=== PATIENT | female | born 1990 | race Caucasian/White ===

== ENCOUNTER → 2017-03-27 15:43 | Observation (INO) ==
--- NOTE | 2017-03-27 13:44 | OB/GYN Progress Note ---
Date of Encounter: 03/27/17 Time of Encounter: 13:41 - Assessment and Plan (1) 37 weeks gestation of Current Visit: No Status: Acute 27 y/ @ 37 weeks presented to L&D for labor eval, cervix-4cm unchanged NST reactive, patient not in labor, ok for discharge Objective - Vital Signs Vital Signs: Intake and Output 03/26/17 03/27/17 03/27/17 23:59 07:59 15:59 Other: Weight 157.1 kg Patient Weight 03/27/17 23:59 Weight 157.1 kg
[2017-03-27 14:34] LABS: Amphetamine Screen,Urine Negative ng/mL (Cutoff=1000); Barbiturate Screen,Urine Negative ng/mL (Cutoff=200); Benzodiazepines Screen,Urine Negative ng/mL (Cutoff=200); Cannabinoid Screen,Urine Negative ng/mL (Cutoff = 50); Cocaine Screen,Urine Negative ng/mL (Cutoff= 300); Opiate Screen,Urine Negative ng/mL (Cutoff=300); Phencyclidine Screen,Urine Negative ng/mL (Cutoff=25)
== END | disposition home or self-care (01) ==
LOC: 1NENULAB
PROVIDERS: ADMIT Student in an Organized Health Care Education/Training Program; ATTEND Student in an Organized Health Care Education/Training Program

== ENCOUNTER 2017-03-31 16:47 | Inpatient (IN) ==
[2017-03-31] MEDS ORDERED: Metoclopramide 10 MG/2 ML VIAL IVP PRN (16:53)
[2017-03-31] MEDS ORDERED: Famotidine 20 MG/2 ML VIAL IVP PRN (16:53)
[2017-03-31] MEDS ORDERED: Naloxone 0.4 MG/ML INJ IVP PRN (16:53)
[2017-03-31] MEDS ORDERED: Ondansetron 4 MG/2 ML VIAL IVP PRN (16:53)
[2017-03-31] MEDS ORDERED: Ringers Solution, Lactated 1,000 ML IVC SCH (17:00)
[2017-03-31 17:48] LABS: Basophils % 0.2 %; Eosinophils # 0.3 K/mcL (0.0-0.6); Eosinophils % 1.9 %; Hematocrit 35.8 % (35.3-44.9); Hemoglobin 11.4 g/dL (11.5-15.4); Immature Granulocytes % 0.7 % (0-4); Lymphocytes # 2.5 K/mcL (0.6-4.6); Lymphocytes % 14.8 %; Mean Corpuscular HGB Conc 31.8 g/dL (31.6-35.5); Mean Corpuscular Hemoglobin 27.7 pg (28.0-33.3); Mean Corpuscular Volume 87.1 fL (83.0-100.0); Mean Platelet Volume 10.2 fL (9.4-12.4); Monocytes # 1.4 K/mcL (0.0-1.3); Monocytes % 8.4 %; Neutrophils # 12.5 K/mcL (1.6-8.9); Platelet Count 363 K/mcL (140-400); Red Blood Count 4.11 M/mcL (3.82-4.97); Red Cell Distribution Width 14.7 % (11.5-14.5)
--- NOTE | 2017-03-31 19:13 | OB/GYN Progress Note ---
Date of Encounter: 03/31/17 Time of Encounter: 19:10 - Assessment and Plan (1) 38 weeks gestation of Current Visit: Yes Status: Acute (2) False labor Current Visit: No Status: Ruled-out He should monitor and evaluated in labor delivery. Continues to have contractions rarely but on monitor. Discharged home with when to return to triage notify provider instructions patient family verbalized understanding. Plan of care discussed with Dr. Young Subjective - Subjective Interval history: 38+2 weeks gestation sent over from the office for labor evaluation. Patient states she has been having contractions off and on for the last 2 weeks , currently having contractions approximately every 15 minutes, had leaking of fluid 2 days ago, and continues to have occasional gushes of fluid. Speculum exam and office was positive for nitrazine negative pooling negative ferning on exam per Dr. Young. Reports good movement and denies vaginal bleeding. Antepartum ROS: loss of fluid, movement normal, no vaginal bleeding, no contractions Objective - Vital Signs Vital Signs: Vital Signs Temp Pulse Resp BP 03/31/17 17:28 98.4 F 96 14 118/71 - Exam FHR: auscultation normal FHR comments: baseline 135 Auscultation: bilateral: normal Abdomen: Present: normal appearance, soft, gravid Uterus: Present: normal Cervical dilation: 5 Cervix effacement: 75 - Labs Labs: Abnormal lab results WBC 16.9 K/mcL (4.3-11.1) H 03/31/17 17:28 Hgb 11.4 g/dL (11.5-15.4) L 03/31/17 17:28 MCH 27.7 pg (28.0-33.3) L 03/31/17 17:28 RDW 14.7 % (11.5-14.5) H 03/31/17 17:28 Neutrophils # 12.5 K/mcL (1.6-8.9) H 03/31/17 17:28 Monocytes # 1.4 K/mcL (0.0-1.3) H 03/31/17 17:28
[2017-03-31] MEDS ORDERED: *HR* Nalbuphine 20 MG/ML AMPUL IVP PRN (20:46)
[2017-03-31] MEDS ORDERED: Oxytocin 20 units/ LR 1000 mL 20 UNIT/1,000 ML BAG IVC SCH (21:00)
--- NOTE | 2017-03-31 21:33 | OB/GYN History & Physical ---
Date of Encounter: 03/31/17 Time of Encounter: 21:30 Assessment and Plan (1) 38 weeks gestation of Current visit: Yes Status: Acute (2) Prolonged rupture of membranes Current visit: Yes Status: Acute Patient with plates of continued leaking of fluid. Patient with previous ultrasound and JOYCE of 18, patient scanned by Dr. Young JOYCE of 6 with 2 pockets with no fluid noted. Due to decrease in amniotic fluid volume presumed rupture 2 days ago with onset of leaking of fluid. Will admit to labor and delivery Nubain and epidural as desired Anticipate GBS negative, will initiate antibiotics with patient presents with symptoms Dr. Young aware of plan (3) Large for gestational age fetus Current visit: Yes Status: Acute History of Present Illness Chief complaint: contractions HPI: Ms. Caballero is a 27 year old female 38+2 weeks' gestation presents from the office with complaints of leaking of fluid for the last 2 days (positive nitrazine, negative pooling, negative ferning office exam by Dr. Young ) contractions for the last week. Reports good movement and denies vaginal bleeding. Labs: O+ rubella immune, varicella nonimmune, GBS negative, all other serologies negative Past Med Surg Social Fam HX - Past Medical History Medical history: no medical history Psychiatric history: no psych history - Past Surgical History Surgical History: other - Social History Smoking Status: Current every day smoker Packs per day: .25 Smokeless Tobacco Status: Yes Alcohol use: none Drug use: none - Family History Mother Adopted: No Family Member Ethnicity: Non- Living Status: Still Living Hx Family Cardiac Disorders: Yes (stent placed) Hx Family Respiratory Disorders: No Hx Family Cancer: No Hx Family GI Disorders: No Hx Family Genitourinary Disorders: No Hx Family Endocrine Disorder: No Hx Family Musculoskeletal Disorders: No Hx Family Neuromuscular Disorders: No Hx Family Neurologic Disorders: No Hx Family HEENT Disorders: No Hx Family Autoimmune Disorders: No Hx Family Reproductive Disorders: No Hx Family Psychosocial Disorders: No Hx Family Medical Disorders: No Obstetrical History - Pregnancies : 2 Para: 1 Term: 1 : 0 Ab's: 0 Livin Medications and Allergies Flintstones 1 tab PO DAILY 12/23/15 [History] 3 Allergy/AdvReac Type Severity Reaction Status Date / Time Bleach (Sodium Hypochlorite) Allergy Hives Verified 03/27/17 13:24 coconut Allergy Swelling Verified 03/27/17 13:24 of Lip/Tongue/Throat strawberries Allergy Hives Uncoded 03/27/17 13:24 Exam - Vital Signs Vital signs: Initial Vital Signs Temp Pulse Resp BP 98.4 F 96 14 118/71 03/31/17 17:28 03/31/17 17:28 03/31/17 17:28 03/31/17 17:28 - Constitutional Constitutional: well developed, well nourished, no acute distress, obese - Lungs Respiratory exam: CTAB - Cardiovascular Cardiovascular exam: RRR - Abdomen Abdomen: Present: bowel sounds normal, gravid, non tender - Vagina Vagina: Present: normal moisture - Cervix Dilation: 5 Effacement: 80 Station: -2 - Uterus Uterus exam: Present: normal size, normal contour Results Result Diagrams: 03/31/17 17:28 Abnormal lab results WBC 16.9 K/mcL (4.3-11.1) H 03/31/17 17:28 Hgb 11.4 g/dL (11.5-15.4) L 03/31/17 17:28 MCH 27.7 pg (28.0-33.3) L 03/31/17 17:28 RDW 14.7 % (11.5-14.5) H 03/31/17 17:28 Neutrophils # 12.5 K/mcL (1.6-8.9) H 03/31/17 17:28 Monocytes # 1.4 K/mcL (0.0-1.3) H 03/31/17 17:28 All other labs normal. - VTE Reasons for not Prescribing Prophylaxis: Treatment not Indicated - Low risk for VTE
[2017-03-31 21:38] LABS: Amphetamine Screen,Urine Negative ng/mL (Cutoff=1000); Barbiturate Screen,Urine Negative ng/mL (Cutoff=200); Benzodiazepines Screen,Urine Negative ng/mL (Cutoff=200); Cannabinoid Screen,Urine Negative ng/mL (Cutoff = 50); Cocaine Screen,Urine Negative ng/mL (Cutoff= 300); Opiate Screen,Urine Negative ng/mL (Cutoff=300); Phencyclidine Screen,Urine Negative ng/mL (Cutoff=25)
[2017-03-31] MEDS ORDERED: *HR* FentaNYL (PF) 100 MCG/2 ML VIAL EP ONE (22:48)
[2017-03-31] MEDS ORDERED: *HR* Ropivacaine/PF 0.2% 10 ML AMPUL EP ONE (22:48)
[2017-03-31] MEDS ORDERED: *HR* FentaNYL (PF) 100 MCG/2 ML VIAL ONE (22:58)
[2017-03-31] MEDS ORDERED: *HR* Ropivacaine/PF 0.2% 10 ML AMPUL ONE (22:59)
[2017-03-31] MEDS ORDERED: Epidural Premix (fent/bupiv) 110 ML EP ONE (22:59)
[2017-03-31] MEDS ORDERED: Epidural Premix (fent/bupiv) 110 ML EP SCH (23:00)
--- NOTE | 2017-03-31 23:22 | Anesthesia Evaluation PreOp ---
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: Denies Any Significant HX Other Medical History: GERD Anesthesia History: No Prior Anesthetic Complications, Past Anesthesia (tonsil, srinivasa) : Yes Test: Positive Alcohol Use: none Drug use: none Medications and Allergies Flintstones 1 tab PO DAILY 12/23/15 [History] 3 Allergy/AdvReac Type Severity Reaction Status Date / Time Bleach (Sodium Hypochlorite) Allergy Hives Verified 03/27/17 13:24 coconut Allergy Swelling Verified 03/27/17 13:24 of Lip/Tongue/Throat strawberries Allergy Hives Uncoded 03/27/17 13:24 - Meds/Allergy Pre-op Review Medications Reviewed: Yes Allergies Reviewed: Yes Beta Blockers on Current Med List: No Anesthesia Results - Labs 03/31/17 17:28 Anesthesia Exam 130/87 89 fht 133 Height: 6'2" Weight: 157 k NPO (# of Hours): 2 Pain Scale: 7 Pain Scale Used: Numeric (1 - 10) - HEENT Pupil (Motor): Pupils equal Mallampati: II Teeth: Normal Oral Opening: Greater than 3 - OXYGEN PLANT OPERATOR LOC: Oriented OXYGEN PLANT OPERATOR Motor: Normal RUE, Normal LUE, Normal RLE, Normal LLE, Normal Face OXYGEN PLANT OPERATOR Sensory: Normal: RUE, LUE, RLE, LLE, Face - Cardiac Rhythm: Regular Murmur: None - Pulmonary Breath Sounds: bilateral Clear Respiratory Effort: Symmetrical Anesthesia Assess/Plan ASA Score: 3 (smoker, [place]) Modified Anne Scale for Level of Consciousness: Cooperative, oriented, and tranquil Anesthetic Plan: Regional Autologous Blood: No Monitoring Plan: Standard Monitors Recovery Plan: Other (risks discussed, questions answered, consented)
--- NOTE | 2017-03-31 23:26 | Anesthesia Procedures ---
Date of Encounter: 03/31/17 Time of Encounter: 23:24 Procedures: Anesthesia - Epidural/Spinal Patient ID/Chart reviewed: Yes Patient examined: Yes OB Eval: Gestational age: 38.2 OB Eval: : 2 OB Eval: Hx Para: 1 OB Eval: Dilated at (cm): 5 OB Eval: Contractions: Non-stressed pattern Consent Obtained: Yes Supplemental Oxygen: None/Room Air Site Prep: Aseptic Technique, Sterile prep and drape, 0.5% Chlorhexidine/Alcohol Patient position: upright Local Anesthetic: Lidocaine 1% (3) Amount of Local Anesthetic used: 3 Touhy Needle Gauge: 18 Catheter Depth at Skin (cm): 9 Test Dose (1.5% Lido + Epi): Volume given (mls): 3 Test Dose Result: Negative Loading Dose: Fentanyl (mcg): 100 Loading Dose: Other: rop 0.2% 10cc Loading Dose Administered: Thru Touhy Needle Infusion Med: 0.125% Bupivacaine w/ 2 mcg/ml Fentanyl Infusion Rate (mls/hr): [address]: Tegaderm Interspace Used: L2-L3 Loss of Resistance (JONO): Yes Blood: No CSF: No Paresthesia: No Procedure: aseptic, tolerated well, VSS, effective - Nerve Block Vitals: 130/80 88 fht 134
--- NOTE | 2017-04-01 03:54 | OB/GYN Procedure Note ---
Delivery - Delivery Date: 04/01/17 Provider: Beatrice Kenyon Intrapartum events: other(please specify) (Prolonged rupture of membranes over 48 hours) Delivery induction: oxytocin Delivery monitor: internal FHT, internal uterine Anesthesia: epidural Estimated Blood Loss: 150 - (s) A Infant Delivery Date: 04/01/17 Infant Delivery Time: 03:21 Presentation: vertex Position: OA Route of delivery: Gender: Male Viability: Viable Pounds: 9 Ounces: 3 Weight Gram: 4170 kg at 1 minute: 8 at 5 mins: 9 Shoulder Dystocia: not encountered Specimens collected: cord blood Placenta: spontaneous Cord: nuchal cord (nuchal x2), 3 umbilical vessels - Repair Laceration Description: Perineal - 2nd Degree - Complications Delivery complications: none Delivery comments: Patient with prolonged rupture admitted for Pitocin induction. Progressed to complete maternal bearing down efforts to of liveborn male. Vertex delivered OA, nuchal cord 2 noted and manually reduced, shoulders and body easily followed. Shoulder dystocia not encountered. Vigorous infant placed on maternal abdomen for drying and stimulation Apgars 8/9. Delayed cord clamping then cord clamped and cut by father of baby. Second degree perineal laceration repaired with 3-0 Vicryl in usual fashion. The center delivered spontaneous complete with a three-vessel cord. Fundus firm at U Pitocin started per policy EBL 150. All sponge and needle counts correct. - Disposition Mom disposition: stable in LDR [place] disposition: stable in LDR
[2017-04-01] MEDS ORDERED: Acetaminophen 325 MG TABLET PO PRN (04:51)
[2017-04-01] MEDS ORDERED: Ibuprofen 600 MG TABLET PO PRN (04:51)
[2017-04-01] MEDS ORDERED: Benzocaine/Menthol 56 GM AEROSOL SPRAY TP PRN (04:51)
[2017-04-01] MEDS ORDERED: Oxytocin 20 units/ LR 1000 mL 20 UNIT/1,000 ML BAG IVC SCH (04:51)
[2017-04-01] MEDS: Prenatal Vit/FA 1 EACH TABLET PO SCH (10:20)
[2017-04-02] MEDS ORDERED: Epidural Premix (fent/bupiv) 110 ML EP ONE (06:10)
[2017-04-02 07:56] VITALS: BP 115/79
--- NOTE | 2017-04-02 08:26 | Discharge Summary ---
Date of Encounter: 04/02/17 Time of Encounter: 08:24 - Discharge Diagnosis (1) Vaginal delivery Priority: Primary Status: Acute Comments: Continue routine care discharge home today follow up with Dr. Young in 4-6 weeks (2) Second degree perineal laceration during delivery Priority: Secondary Status: Acute Comments: routine pericare colace po daily sitz bath prn - Discharge Medications Home Medications: Flintstones 1 tab PO DAILY 12/23/15 [History] Docusate [Colace] 100 mg PO BID capsule 04/02/17 [Rx] Ibuprofen Susp [Motrin Susp] 600 mg PO Q6H PRN udc 04/02/17 [Rx] Allergies/Adverse Reactions: 3 Allergy/AdvReac Type Severity Reaction Status Date / Time Bleach (Sodium Hypochlorite) Allergy Hives Verified 03/27/17 13:24 coconut Allergy Swelling Verified 03/27/17 13:24 of Lip/Tongue/Throat strawberries Allergy Hives Uncoded 03/27/17 13:24 Data Procedures and tests throughout hospitalization: Laboratory Tests 03/31/17 03/31/17 17:28 21:20 WBC 16.9 H RBC 4.11 Hgb 11.4 L Hct 35.8 MCV 87.1 MCH 27.7 L MCHC 31.8 RDW 14.7 H Plt Count 363 MPV 10.2 Immature Gran % 0.7 Seg Neutrophils % 74.0 Lymphocytes % 14.8 Monocytes % 8.4 Eosinophils % 1.9 Basophils % 0.2 Neutrophils # 12.5 H Lymphocytes # 2.5 Monocytes # 1.4 H Eosinophils # 0.3 Basophils # 0.0 Urine Opiates Screen Negative Ur Barbiturates Screen Negative Ur Phencyclidine Scrn Negative Ur Amphetamines Screen Negative U Benzodiazepines Scrn Negative Urine Cocaine Screen Negative U Marijuana (THC) Screen Negative Date of admission: 03/31/17 16:47 Primary care physician: PCP NONE Consults: 04/01/17 04:51 Consult to Preflight Mechanic [CONS] Routine Comment: Vaginal delivery, consult needed Discharging clinician: Teetee Spivey Anticipated date of discharge: 04/02/17 - Patient Status Disposition: Home, Self-Care Condition: Good Functional capacity at discharge: independent ambulation - Discharge Instructions Follow Up With: NONE,PCP [Primary Care Provider] - - Diet and Activity Activity: increase activity as tolerated Diet: regular diet Hospital Course Delivery: Episiotomy: none Laceration: 2nd degree Other procedures: none complications: none Discharge diagnosis: IUP at term delivered baby: male (bottle feeding) Time Attestation: Total time spent providing and/or coordinating discharge services: Time Spent: Less than 30 minutes Exam - Constitutional Vitals: Temp Pulse Resp BP Pulse Ox 98.2 F 74 18 115/79 97 04/02/17 07:30 04/02/17 07:30 04/02/17 07:30 04/02/17 07:30 04/01/17 19:54 General appearance IM: A&O X 3, pleasant, answers questions appropriately - Respiratory Respiratory exam: Present: CTAB - Cardiovascular Cardiovascular exam IM: Present: RRR, +S1, +S2 - GI/Abdominal GI/Abdominal exam IM: normal bowel sounds - Uterine Tone: Firm Uterus Position: 2 Fingers Below Umbilicus, Midline - Extremities Exam Extremities exam IM: Present: full ROM, normal capillary refill, normal inspection - Neurological Exam Neurological exam: alert, oriented X3, reflexes normal
[2017-04-02] MEDS: Prenatal Vit/FA 1 EACH TABLET PO SCH (10:04)
== END 2017-04-02 14:35 | disposition home or self-care (01) | DRG 560 ==
LOC: 1NENULAB → OBSVTOIN 16:47 → 1NENUOBS 04-01 06:01
PROVIDERS: ADMIT Obstetrics & Gynecology; ATTEND Obstetrics & Gynecology

== ENCOUNTER 2017-08-28 14:41 | Observation (INO) ==
[2017-08-28] MEDS ORDERED: Ketorolac 30 MG/ML VIAL IVP ONE (15:35)
[2017-08-28] MEDS ORDERED: Pantoprazole 40 MG VIAL IVP ONE (15:35)
[2017-08-28] MEDS ORDERED: 0.9 % Sodium Chloride 1,000 ML IVC ONE (15:35)
[2017-08-28] MEDS ORDERED: *HR* Promethazine 25 MG/ML VIAL IVP ONE (15:35)
--- NOTE | 2017-08-28 15:41 | Emergency Department Note ---
Disposition Clinical Impression: Cholecystitis Disposition: Admitted As Inpatient Abdominal Pain HPI - General Chief Complaint: ED Abdominal Pain Stated Complaint: Gall stones are hurting/vomiting Time Seen by Provider: 08/28/17 14:56 Source: patient Mode of arrival: ambulatory Limitations: no limitations Nursing Notes Reviewed: Yes Vital Signs Reviewed: Yes - History of Present Illness HPI Narrative: 27-year-old female with no past medical history presents with a four-day history of constant sharp epigastric and right upper quadrant pain. She states that this gets worse with movement, palpation of the abdomen, worse with meals. Associated symptoms are nausea and vomiting. She was evaluated at another ED last night. They ordered a CT scan of her abdomen that showed that she had gallstones. She was given a prescription prescription for Zofran but she did not get this filled. She denies fevers, chills, diarrhea, constipation, hematochezia, melena, hematuria, dysuria, vaginal discharge or itching. She also states that she had been on Depakote injection, but did not go back together injection when she is due one month ago. She is having some vaginal spotting but is unsure if this is her starting her cycle or not. Pain Scale: 8 - Related Data Home Medications Medication Instructions Recorded Confirmed Flintstones 1 tab PO DAILY 12/23/15 03/31/17 Previous Rx's Medication Instructions Recorded Docusate [Colace] 100 mg PO BID capsule 04/02/17 Ibuprofen Susp [Motrin Susp] 600 mg PO Q6H PRN udc 04/02/17 Allergies Allergy/AdvReac Type Severity Reaction Status Date / Time Bleach (Sodium Hypochlorite) Allergy Hives Verified 03/27/17 13:24 coconut Allergy Swelling Verified 03/27/17 13:24 of Lip/Tongue/Throat strawberries Allergy Hives Uncoded 03/27/17 13:24 All systems ED: reviewed and negative except as stated. 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: Reports: no AUTOMOBILE SERVICE STATION MANAGER history Psychiatric history: Reports: no psych history - Social History Smoking status: Current every day smoker Alcohol use: Reports: none Drug use: Reports: none Physical Exam - General Limitations: no limitations General appearance: alert, in no apparent distress - Head Head exam: atraumatic, normocephalic, normal inspection - ENT ENT exam: mucous membranes dry - Chest Chest inspection: Present: symmetric chest wall rise - Respiratory Respiratory exam: Present: normal lung sounds bilaterally - Cardiovascular Cardiovascular exam: Present: regular rate, normal rhythm, +S1, +S2 - Abdominal Exam Abdominal exam: Present: soft, tenderness, normal bowel sounds, Brasher's sign. Absent: distention, guarding, rebound, rigidity, Rovsing's sign, tenderness at McBurney's Point Abdominal tenderness: Present: RUQ, epigastrium, moderate - Extremities Exam Extremities exam: Present: normal inspection, normal capillary refill. Absent: tenderness, pedal edema - Neurological Exam Neurological exam: Present: alert, oriented X3 - Skin Skin exam: Present: warm, dry, intact, normal color. Absent: diaphoresis Course Vital Signs Temperature 97.8 F 08/28/17 14:42 Pulse Rate 81 08/28/17 14:42 Respiratory Rate 18 08/28/17 14:42 Blood Pressure 150/96 08/28/17 14:42 O2 Sat by Pulse Oximetry 98 08/28/17 14:42 Temperature 97.8 F 08/28/17 14:42 Pulse Rate 63 08/28/17 20:08 Respiratory Rate 16 08/28/17 20:08 Blood Pressure 127/77 08/28/17 20:08 O2 Sat by Pulse Oximetry 97 08/28/17 20:08 Oxygen Delivery Oxygen Delivery Room Air Abdominal Pain - MDM Narrative Medical decision making narrative: She presented to [facility] for further evaluation of her abdominal pain. Records from outside hospital reviewed. CBC and CMP are unremarkable. Ultrasound shows cholelithiasis with a gallstone at the gallbladder neck, distended gallbladder, trace amount of pericholecystic fluid, positive sonographic Brasher' s sign. The patient is afebrile and vital signs are stable. However she continues to have pain, nausea, vomiting despite treatment here in the ED, . Case was discussed with Dr. Benites, surgeon operations logistics analyst, and he came and evaluated the patient in the ED. He decided to take patient to the OR for cholecystectomy tonight, and she will be admitted to the hospital after surgery. - Medical Records Medical records reviewed: Yes I reviewed the patient's medical records. Records are reviewed from previous ED visit last night. Labs showed no elevation, anemia, normal platelets. Chemistry unremarkable. No elevation of hepatic function. No elevation of bilirubin. UA was concerning for UTI and the patient was offered Bactrim but she declined because she cannot pills. CT abdomen shows gallbladder distention with small stones, but no inflammatory stranding to suggest cholecystitis. There were no other acute abdominopelvic findings on CT. - Lab Data Lab results reviewed: Yes I reviewed the patient's lab results. Result diagrams: 08/28/17 15:35 08/28/17 15:35 Lab Results 08/28/17 08/28/17 08/28/17 Range/Units 15:35 15:35 16:08 WBC 11.0 (4.3-11.1) K/mcL RBC 4.76 (3.82-4.97) M/mcL Hgb 13.4 (11.5-15.4) g/dL Hct 41.7 (35.3-44.9) % MCV 87.6 (83.0-100.0) fL MCH 28.2 (28.0-33.3) pg MCHC 32.1 (31.6-35.5) g/dL RDW 14.3 (11.5-14.5) % Plt Count 198 (140-400) K/mcL MPV 11.6 (9.4-12.4) fL Immature Gran % 0.4 (0-4) % Seg Neutrophils % 75.1 % Lymphocytes % 15.4 % Monocytes % 5.8 % Eosinophils % 2.9 % Basophils % 0.4 % Neutrophils # 8.3 (1.6-8.9) K/mcL Lymphocytes # 1.7 (0.6-4.6) K/mcL Monocytes # 0.6 (0.0-1.3) K/mcL Eosinophils # 0.3 (0.0-0.6) K/mcL Basophils # 0.0 (0.0-0.2) K/mcL Clumped Platelets Few A (Not Present) Sodium 138 (136-145) mEq/L Potassium 5.1 (3.5-5.1) mEq/L Chloride 111 H (98-107) mEq/L Carbon Dioxide 19 L (23-29) mEq/L BUN 11 (6-20) mg/dL Creatinine 0.87 (0.60-1.20) mg/dL Est GFR ( Amer) > 60 (> 60) Est GFR (Non-Af Amer) > 60 (> 60) BUN/Creatinine Ratio 13 (6-26) Glucose 96 (70-105) mg/dL Calculated Osmolality 285 (280-300) Calcium 9.6 (8.6-10.3) mg/dL Total Bilirubin 0.4 (0.3-1.0) mg/dL Direct Bilirubin 0.0 (0.0-0.2) mg/dL Indirect Bilirubin 0.4 (0.0-1.2) mg/dL AST 34 (13-39) Units/L ALT 41 (7-52) Units/L Alkaline Phosphatase 98 (34-104) Units/L Serum Total Protein 6.7 (6.4-8.9) g/dL Albumin 4.3 (3.5-5.7) g/dL Globulin 2.4 (2.4-3.5) g/dL Albumin/Globulin Ratio 1.8 (1.1-2.2) Amylase 16 L (29-103) Units/L Lipase 5 L (11-82) Units/L Serum , Qual Negative (Negative) Urine Color (Yellow) Urine Clarity (Clear) Urine pH (5.0-8.0) pH Units Ur Specific [place] (1.010-1.025) Urine Protein (Neg-Trace) mg/dL Urine Glucose (UA) (Normal) mg/dL Urine Ketones (Negative) mg/dL Urine Blood (Negative) Urine Nitrite (Negative) Urine Bilirubin (Negative) Urine Urobilinogen (Normal) mg/dL Ur Leukocyte Esterase (Negative) Urine Microscopic RBC (0-3) per hpf Urine Microscopic WBC (0-3) per hpf Ur Squamous Epith Cells (None-Few) per lpf Urine Bacteria (None-Few) per hpf Ur Culture Indicated? (NO) Urine Test (Negative) 08/28/17 08/28/17 Range/Units 16:37 16:37 WBC (4.3-11.1) K/mcL RBC (3.82-4.97) M/mcL Hgb (11.5-15.4) g/dL Hct (35.3-44.9) % MCV (83.0-100.0) fL MCH (28.0-33.3) pg MCHC (31.6-35.5) g/dL RDW (11.5-14.5) % Plt Count (140-400) K/mcL MPV (9.4-12.4) fL Immature Gran % (0-4) % Seg Neutrophils % % Lymphocytes % % Monocytes % % Eosinophils % % Basophils % % Neutrophils # (1.6-8.9) K/mcL Lymphocytes # (0.6-4.6) K/mcL Monocytes # (0.0-1.3) K/mcL Eosinophils # (0.0-0.6) K/mcL Basophils # (0.0-0.2) K/mcL Clumped Platelets (Not Present) Sodium (136-145) mEq/L Potassium (3.5-5.1) mEq/L Chloride (98-107) mEq/L Carbon Dioxide (23-29) mEq/L BUN (6-20) mg/dL Creatinine (0.60-1.20) mg/dL Est GFR ( Amer) (> 60) Est GFR (Non-Af Amer) (> 60) BUN/Creatinine Ratio (6-26) Glucose (70-105) mg/dL Calculated Osmolality (280-300) Calcium (8.6-10.3) mg/dL Total Bilirubin (0.3-1.0) mg/dL Direct Bilirubin (0.0-0.2) mg/dL Indirect Bilirubin (0.0-1.2) mg/dL AST (13-39) Units/L ALT (7-52) Units/L Alkaline Phosphatase (34-104) Units/L Serum Total Protein (6.4-8.9) g/dL Albumin (3.5-5.7) g/dL Globulin (2.4-3.5) g/dL Albumin/Globulin Ratio (1.1-2.2) Amylase (29-103) Units/L Lipase (11-82) Units/L Serum , Qual (Negative) Urine Color Red A (Yellow) Urine Clarity Turbid A (Clear) Urine pH 6.0 (5.0-8.0) pH Units Ur Specific [place] > 1.030 H (1.010-1.025) Urine Protein 100 H (Neg-Trace) mg/dL Urine Glucose (UA) Normal (Normal) mg/dL Urine Ketones Trace H (Negative) mg/dL Urine Blood Large H (Negative) Urine Nitrite Negative (Negative) Urine Bilirubin Moderate H (Negative) Urine Urobilinogen Normal (Normal) mg/dL Ur Leukocyte Esterase Moderate H (Negative) Urine Microscopic RBC TNTC H (0-3) per hpf Urine Microscopic WBC 50-100 H (0-3) per hpf Ur Squamous Epith Cells Many H (None-Few) per lpf Urine Bacteria None Seen (None-Few) per hpf Ur Culture Indicated? NO. (NO) Urine Test Negative (Negative) - Radiology Data Radiology results reviewed: Yes I reviewed the patient's radiology results. Cholelithiasis with a gallstone at the gallbladder neck. Distended gallbladder. Trace amount of pericholecystic fluid. Positive sonographic Brasher's sign. Attestation Statement - Attestation Attestation: Patient was seen with resident physician. I reviewed the history, physical, assessment and plan, and agree with the findings. I also personally evaluated this patient and had [id number] time with this patient. 27-year-old female presents emergency department with chief complaint of right upper quadrant abdominal pain nausea and vomiting. Patient has a history of same. She was seen at another hospital last night at approximately midnight. Apparently CT scan did not show significant abnormalities. She was discharged home with instructions to get a follow-up ultrasound. Patient did not get her nausea medicine filled because she said it did not help. She says she cannot take pills. She was not given narcotics for treatment as an outpatient. She comes in today with continued pain and nausea and vomiting. Denies fevers or chills. No dysuria. She is unsure if she is or not. On exam vital signs are stable ENT is unremarkable. Heart and lungs are normal. Abdomen is soft there is right upper quadrant tenderness without guarding rigidity. She is morbidly obese. Extremities unremarkable. Neurologically intact. Skin no rashes. Psych normal. He course we will treat the patient's pain with Toradol and nausea with Phenergan. We will also check gotten a set of labs today and get the medical records from her visit last night. Will also further attempt to control her nausea and pain. We are able to control nausea took several attempts to control pain. Patient did have significant right upper quadrant tenderness her CT scan last night did not reveal stones but no obvious acute cholecystitis with a continuation of symptoms we opted to get an ultrasound. Ultrasound was essentially positive and some concerns for acute cholecystitis. We called surgery who came and evaluated the patient bedside. Per their examination he felt immediate removal of the gallbladder was indicated. She was taken to the OR for that treatment. She was hemodynamically otherwise in stable condition throughout her stay in the emergency department. I agree with resident physician assessment and plan.
[2017-08-28 16:18] LABS: Basophils % 0.4 %; Eosinophils # 0.3 K/mcL (0.0-0.6); Eosinophils % 2.9 %; Hematocrit 41.7 % (35.3-44.9); Hemoglobin 13.4 g/dL (11.5-15.4); Immature Granulocytes % 0.4 % (0-4); Lymphocytes # 1.7 K/mcL (0.6-4.6); Lymphocytes % 15.4 %; Mean Corpuscular HGB Conc 32.1 g/dL (31.6-35.5); Mean Corpuscular Hemoglobin 28.2 pg (28.0-33.3); Mean Corpuscular Volume 87.6 fL (83.0-100.0); Mean Platelet Volume 11.6 fL (9.4-12.4); Monocytes # 0.6 K/mcL (0.0-1.3); Monocytes % 5.8 %; Neutrophils # 8.3 K/mcL (1.6-8.9); Platelet Count 198 K/mcL (140-400); Red Blood Count 4.76 M/mcL (3.82-4.97); Red Cell Distribution Width 14.3 % (11.5-14.5); Segmented Neutrophils % 75.1 %
[2017-08-28 16:34] LABS: Platelet Clumps Few (Not Present)
[2017-08-28] MEDS ORDERED: Ondansetron 4 MG/2 ML VIAL IVP ONE (16:47)
[2017-08-28] MEDS ORDERED: *HR* Nalbuphine 20 MG/ML AMPUL IVP ONE (16:48)
[2017-08-28 16:50] LABS: Alanine Aminotransferase 41 Units/L (7-52); Albumin 4.3 g/dL (3.5-5.7); Albumin/Globulin Ratio 1.8 (1.1-2.2); Alkaline Phosphatase 98 Units/L (34-104); Amylase 16 Units/L (29-103); Aspartate Amino Transferase 34 Units/L (13-39); BUN/Creatinine Ratio 13 (6-26); Bilirubin,Indirect 0.4 mg/dL (0.0-1.2); Bilirubin,Total 0.4 mg/dL (0.3-1.0); Blood Urea Nitrogen 11 mg/dL (6-20); Calcium 9.6 mg/dL (8.6-10.3); Carbon Dioxide 19 mEq/L (23-29); Chloride 111 mEq/L (98-107); Globulin 2.4 g/dL (2.4-3.5); Glucose 96 mg/dL (70-105); Lipase 5 Units/L (11-82); Osmolality,Calculated 285 (280-300); Potassium 5.1 mEq/L (3.5-5.1); Sodium 138 mEq/L (136-145); Total Protein 6.7 g/dL (6.4-8.9); eGFR For African Americans > 60 (> 60); eGFR For Non-African Americans > 60 (> 60)
[2017-08-28 17:15] LABS: Bilirubin,Urine Moderate (Negative); Blood,Urine Large (Negative); Clarity,Urine Turbid (Clear); Color,Urine Red (Yellow); Glucose,Urine (UA) Normal (Normal); Ketones,Urine Trace mg/dL (Negative); Leukocyte Esterase,Urine Moderate (Negative); Nitrite,Urine Negative (Negative); Protein,Urine 100 mg/dL (Neg-Trace); Specific Gravity,Urine > 1.030 (1.010-1.025); Urobilinogen,Urine Normal (Normal)
[2017-08-28 17:18] LABS: Bacteria,Urine None Seen per hpf (None-Few); Squamous Epithelial Cell,Urine Many per lpf (None-Few); WBC,Urine 50-100 per hpf (0-3)
[2017-08-28 17:38] LABS: RBC,Urine TNTC per hpf (0-3)
--- NOTE | 2017-08-28 19:37 | General Surg History&Physical ---
Date of Encounter: 08/28/17 Time of Encounter: 19:36 Assessment and Plan (1) Acute cholecystitis Current Visit: Yes Status: Acute 27F with acute cholecystitis; non septic; NPO IVF admit for observation plan for robotic cholecystectomy The assessment and plan as outlined above was discussed with the patient and/or family members who expressed understanding and agreement. All questions were answered. History of Present Illness Chief complaint: right upper quadrant abdominal pain HPI: Ms. Caballero is a 27 year old female h/o obesity who presents with 4 days of RUQ pain with associated nausea, vomiting, and poor PO intake. She was evaluated at an OSH, but the decision was made for pain control. Upon getting home she found that her pain was worse. She subsequently presented to [facility] for further evaluation. Past Med Surg Social Fam HX - Past Medical History Medical history: no medical history Psychiatric history: no psych history - Past Surgical History Surgical History: other - Social History Smoking Status: Current every day smoker Smokeless Tobacco Status: No Alcohol use: none Drug use: none - Family History Mother Adopted: No Family Member Ethnicity: Non- Living Status: Still Living Hx Family Cardiac Disorders: Yes (stent placed) Hx Family Respiratory Disorders: No Hx Family Cancer: No Hx Family GI Disorders: No Hx Family Endocrine Disorder: No Hx Family Neuromuscular Disorders: No Hx Family Neurologic Disorders: No Hx Family HEENT Disorders: No Hx Family Autoimmune Disorders: No Medications and Allergies Flintstones 1 tab PO DAILY 12/23/15 [History] Docusate [Colace] 100 mg PO BID capsule 04/02/17 [Rx] Ibuprofen Susp [Motrin Susp] 600 mg PO Q6H PRN udc 04/02/17 [Rx] 3 Allergy/AdvReac Type Severity Reaction Status Date / Time Bleach (Sodium Hypochlorite) Allergy Hives Verified 03/27/17 13:24 coconut Allergy Swelling Verified 03/27/17 13:24 of Lip/Tongue/Throat strawberries Allergy Hives Uncoded 03/27/17 13:24 Review of Systems All systems PM: The remainder of the systems were reviewed and are negative General Surgery Exam Initial Vital Signs Temp Pulse Resp BP Pulse Ox 97.8 F 81 18 150/96 98 08/28/17 14:42 08/28/17 14:42 08/28/17 14:42 08/28/17 14:42 08/28/17 14:42 - General physical appearance well developed, no distress - Eyes other (no scleral icterus) - ENT normocephalic - Neck no lymphadectomy - Respiratory normal expansion, normal respiratory effort - Cardiovascular Cardiovascular exam: Present: RRR - Abdomen Abdomen general surgery: Present: soft, tender Abdominal Tenderness: Present: RUQ (non peritoneal; ) - Integumentary Integumentary general surgery: Present: warm and dry, no abnormal pigmentation - Neurologic Present: CN 2-12 grossly intact - Psychiatric Psychiatric general surgery: Present: A&Ox3 Results - Labs 08/28/17 15:35 08/28/17 15:35 Abnormal lab results Clumped Platelets Few (Not Present) A 08/28/17 15:35 Chloride 111 mEq/L (98-107) H 08/28/17 15:35 Carbon Dioxide 19 mEq/L (23-29) L 08/28/17 15:35 Amylase 16 Units/L (29-103) L 08/28/17 15:35 Lipase 5 Units/L (11-82) L 08/28/17 15:35 Urine Color Red (Yellow) A 08/28/17 16:37 Urine Clarity Turbid (Clear) A 08/28/17 16:37 Ur Specific [place] > 1.030 (1.010-1.025) H 08/28/17 16:37 Urine Protein 100 mg/dL (Neg-Trace) H 08/28/17 16:37 Urine Ketones Trace mg/dL (Negative) H 08/28/17 16:37 Urine Blood Large (Negative) H 08/28/17 16:37 Urine Bilirubin Moderate (Negative) H 08/28/17 16:37 Ur Leukocyte Esterase Moderate (Negative) H 08/28/17 16:37 Urine Microscopic RBC TNTC per hpf (0-3) H 08/28/17 16:37 Urine Microscopic WBC 50-100 per hpf (0-3) H 08/28/17 16:37 Ur Squamous Epith Cells Many per lpf (None-Few) H 08/28/17 16:37 Diabetes panel 08/28/17 Range/Units 15:35 Sodium 138 (136-145) mEq/L Potassium 5.1 (3.5-5.1) mEq/L Chloride 111 H (98-107) mEq/L Carbon Dioxide 19 L (23-29) mEq/L BUN 11 (6-20) mg/dL Creatinine 0.87 (0.60-1.20) mg/dL Glucose 96 (70-105) mg/dL Calcium 9.6 (8.6-10.3) mg/dL AST 34 (13-39) Units/L ALT 41 (7-52) Units/L Alkaline Phosphatase 98 (34-104) Units/L Albumin 4.3 (3.5-5.7) g/dL Calcium panel 08/28/17 Range/Units 15:35 Calcium 9.6 (8.6-10.3) mg/dL Albumin 4.3 (3.5-5.7) g/dL Pituitary panel 08/28/17 Range/Units 15:35 Sodium 138 (136-145) mEq/L Potassium 5.1 (3.5-5.1) mEq/L Chloride 111 H (98-107) mEq/L Carbon Dioxide 19 L (23-29) mEq/L BUN 11 (6-20) mg/dL Creatinine 0.87 (0.60-1.20) mg/dL Glucose 96 (70-105) mg/dL Calcium 9.6 (8.6-10.3) mg/dL Adrenal panel 08/28/17 Range/Units 15:35 Sodium 138 (136-145) mEq/L Potassium 5.1 (3.5-5.1) mEq/L Chloride 111 H (98-107) mEq/L Carbon Dioxide 19 L (23-29) mEq/L BUN 11 (6-20) mg/dL Creatinine 0.87 (0.60-1.20) mg/dL Glucose 96 (70-105) mg/dL Calcium 9.6 (8.6-10.3) mg/dL Total Bilirubin 0.4 (0.3-1.0) mg/dL AST 34 (13-39) Units/L ALT 41 (7-52) Units/L Alkaline Phosphatase 98 (34-104) Units/L Albumin 4.3 (3.5-5.7) g/dL All other labs normal. - Imaging US - abdomen: report reviewed, image reviewed (Cholelithiasis with a gallstone at the gallbladder neck. Distended gallbladder. Trace amount of pericholecystic fluid. All imaging was reviewed and interpreted by me in combination with radiology reads)
[2017-08-28] MEDS ORDERED: Ondansetron 4 MG/2 ML VIAL IVP PRN (19:41)
[2017-08-28] MEDS ORDERED: *HR* Rocuronium Bromide 50 MG/5 ML VIAL ONE (19:49)
[2017-08-28] MEDS ORDERED: Lidocaine -MPF 2% 2 ML VIAL ONE (19:49)
[2017-08-28] MEDS ORDERED: *HR* FentaNYL (PF) 100 MCG/2 ML VIAL ONE ×2 (19:49→21:24)
[2017-08-28] MEDS ORDERED: Lidocaine -MPF 4% 5 ML AMPUL ONE (19:49)
[2017-08-28] MEDS ORDERED: *HR* Midazolam HCl 2 MG/2 ML VIAL ONE (19:49)
[2017-08-28] MEDS ORDERED: *HR* Succinylcholine 200 MG/10 ML VIAL IVP ONE (19:49)
[2017-08-28] MEDS ORDERED: *HR* Propofol 200 MG/20 ML VIAL IVP ONE (19:50)
[2017-08-28] MEDS ORDERED: Piperacillin/Tazobactam 3.375 GM in Water for inj. (sterile) 20 ML 20 ML IVP ONE ×3 (20:00→23:23)
[2017-08-28] MEDS ORDERED: Acetaminophen IV 1,000 MG/100 ML INFUS..BTL ONE (20:03)
[2017-08-28] MEDS ORDERED: Metoclopramide 10 MG/2 ML VIAL ONE (20:03)
[2017-08-28] MEDS ORDERED: Famotidine 20 MG/2 ML VIAL ONE (20:03)
[2017-08-28] MEDS ORDERED: Pregabalin 75 MG CAPSULE ONE (20:06)
[2017-08-28] MEDS ORDERED: Albuterol 2.5 MG/3 ML NEBULIZER ONE (20:11)
[2017-08-28] MEDS ORDERED: Albuterol 2.5 MG/3 ML NEBULIZER IH ONE (20:13)
--- NOTE | 2017-08-28 20:14 | Anesthesia Evaluation PreOp ---
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 SALES PROFESSIONAL History: Denies Any Significant HX Other Medical History: Denies Any Significant HX Anesthesia History: No Prior Anesthetic Complications, Past Anesthesia (T&A) Alcohol Use: none Drug use: none Medications and Allergies Flintstones 1 tab PO DAILY 12/23/15 [History] Docusate [Colace] 100 mg PO BID capsule 04/02/17 [Rx] Ibuprofen Susp [Motrin Susp] 600 mg PO Q6H PRN udc 04/02/17 [Rx] 3 Allergy/AdvReac Type Severity Reaction Status Date / Time Bleach (Sodium Hypochlorite) Allergy Hives Verified 03/27/17 13:24 coconut Allergy Swelling Verified 03/27/17 13:24 of Lip/Tongue/Throat strawberries Allergy Hives Uncoded 03/27/17 13:24 - Meds/Allergy Pre-op Review Medications Reviewed: Yes Allergies Reviewed: Yes Beta Blockers on Current Med List: No Anesthesia Results - Labs 08/28/17 15:35 08/28/17 15:35 Laboratory Tests 08/28/17 08/28/17 08/28/17 15:35 16:08 16:37 Est GFR (Non-Af Amer) > 60 Serum , Qual Negative Urine Color Red A Urine Clarity Turbid A Ur Specific [place] > 1.030 H Urine Protein 100 H Urine Glucose (UA) Normal Urine Ketones Trace H Urine Blood Large H Urine Nitrite Negative Urine Bilirubin Moderate H Ur Leukocyte Esterase Moderate H Urine Microscopic RBC TNTC H Urine Microscopic WBC 50-100 H Ur Squamous Epith Cells Many H Urine Test 08/28/17 16:37 Est GFR (Non-Af Amer) Serum , Qual Urine Color Urine Clarity Ur Specific [place] Urine Protein Urine Glucose (UA) Urine Ketones Urine Blood Urine Nitrite Urine Bilirubin Ur Leukocyte Esterase Urine Microscopic RBC Urine Microscopic WBC Ur Squamous Epith Cells Urine Test Negative Laboratory Results Impressions Gallbladder Ultrasound 08/28/17 16:41 IMPRESSION: Cholelithiasis with a gallstone at the gallbladder neck. Distended gallbladder. Trace amount of pericholecystic fluid. Positive sonographic Brasher's sign. Findings may represent acute cholecystitis in appropriate clinical setting. If further imaging confirmation is clinically warranted, HIDA scan may be obtained. Hepatic steatosis. D/ / 08/28/2017 17:50:28 Kings Wolf MD / chelo Interpreting Provider: Kings Wolf MD Anesthesia Exam Vital Signs Temp Pulse Resp BP Pulse Ox 08/28/17 20:04 17 134/89 08/28/17 14:42 97.8 F 81 18 150/96 98 Intake and Output 08/28/17 08/28/17 08/28/17 07:59 15:59 23:59 Intake Total 1000 / 1000 Balance 1000 / 1000 Intake: IV Fluids 1000 / 1000 0.9 % Sodium Chloride 1,000 ML 1000 / 1000 @ 3750 mls/hr IVC .Q16M ONE Rx# :[id number] Other: Stool Characteristics Normal for Patient Weight 151.228 kg Patient Weight 08/28/17 23:59 Weight 151.228 kg Height: 6'3" Weight: 333# BMI = 42 - HEENT Pupil (Motor): Pupils equal, EOMI Mallampati: III Teeth: Normal Oral Opening: Greater than 3 - FINANCIAL SALES PROFESSIONAL LOC: Oriented FIN[employer]CIAL SALES PROFESSIONAL Motor: Normal RUE, Normal LUE, Normal RLE, Normal LLE, Normal Face FIN[employer]CIAL SALES PROFESSIONAL Sensory: Normal: RUE, LUE, RLE, LLE, Face - Cardiac Rhythm: Regular Murmur: None - Pulmonary Breath Sounds: bilateral Clear Respiratory Effort: Symmetrical Anesthesia Assess/Plan ASA Score: 3 (MO), E Modified [place] Scale for Level of Consciousness: Cooperative, oriented, and tranquil Anesthetic Plan: General Monitoring Plan: Standard Monitors Recovery Plan: PACU Anes Supervising Prov Stmt: Pt seen/evaluated, R&B Discussed, questions answered and consent obtained. Lucy Gutierrez MD
[2017-08-28] MEDS ORDERED: Ringers Solution, Lactated 1,000 ML IVC SCH (20:15)
[2017-08-28] MEDS ORDERED: Dexamethasone 4 MG/ML VIAL ONE (21:54)
[2017-08-28] MEDS ORDERED: *HR* Magnesium Sulfate 1 GM/2 ML VIAL ONE (21:54)
[2017-08-28] MEDS ORDERED: Ondansetron 4 MG/2 ML VIAL ONE (21:54)
[2017-08-28] MEDS ORDERED: Neostigmine Methylsulfate 3 MG/3 ML SYRINGE ONE (22:01)
[2017-08-28] MEDS ORDERED: Ketorolac 30 MG/ML VIAL ONE (22:03)
[2017-08-28] MEDS ORDERED: *HR* OxyCODONE Immed Rel 5 MG TABLET PO PRN (22:32)
[2017-08-28] MEDS ORDERED: *HR* Promethazine 25 MG/ML VIAL IVP PRN (22:32)
[2017-08-28] MEDS ORDERED: *HR* Labetalol 20 MG/4 ML SYRINGE IVP PRN (22:32)
[2017-08-28] MEDS ORDERED: *HR* HYDROmorphone 2 MG TABLET PO PRN (22:32)
[2017-08-28] MEDS ORDERED: MORPHINE SUL Oral CONC 10 MG/0.5 ML ORAL.SYG SL PRN (22:32)
--- NOTE | 2017-08-28 22:38 | Anesthesia Evaluation Post Op ---
Date of Encounter: 08/29/17 Time of Encounter: 23:00 - Vital Signs Vital Signs: Vital Signs/O2 Sat/Glucose, Most Current Temp Pulse Resp BP Pulse Ox 08/28/17 23:04 97.8 F 71 16 135/79 08/28/17 22:54 97.3 F L 66 20 139/69 99 08/28/17 22:44 68 20 138/77 99 08/28/17 22:34 68 20 134/73 99 08/28/17 22:24 98.9 F 64 24 134/77 100 - Lungs Lungs: Clear Ascult./Percussion - Airway Airway: Non-obstructed - Cardiovascular Regular Rate - Mental Status Mental Status: Asleep with brisk response to light stimulation - Pain Pain Scale: 2 Pain Scale used: Numeric (1 - 10) - Nausea Vomiting Nausea Vomiting: Not Present - Hydration Hydration: Tolerates oral liquids, Has not voided - Discharge PostOp Status: Transfer Patient to floor Anes Supervising Prov Stmt: Pt seen/evaluated, VSS and pt has met criteria for discharge to floor. - MD Brenda
--- NOTE | 2017-08-28 22:41 | Operative Note ---
Date of procedure: 08/28/17 Pre-op diagnosis: acute cholecystitis Post-op diagnosis: same Procedure: robotic cholecystectomy with intraoperative cholangiogram Complications: none Anesthesia: GETA Local Anesthetics: 0.5% Sensorcaine HCL SubQ (cc) Co-Surgeon: Benjamin Benites Was there an speech pathology assistant present: Yes Shampoo Technician: Ayanna Olson Estimated blood loss (cc): 10 Specimen: gallbladder and contents Condition: stable Disposition: PACU Procedure in Detail: The patient was brought into the operating room suite and was placed in the supine position. Mechanical DVT prophylaxis was applied. A time-in was conducted. The patient underwent smooth induction of anesthesia. Preoperative antibiotics were given. The patient was prepped and draped in the usual fashion. A time-out was held identifying the correct patient, pathology, and procedure. Everyone was in agreement and we began the procedure. Incision to Dissection I started by creating a 12mm supraumbilical incision. Via open Gini technique I did enter into the abdomen. I inserted the 12mm trocar followed by the 30 degree camera, ensured that I did not cause intraabdominal injury upon entry, and quickly identified the gallbladder. I created a 5mm incisions one handbreadth to the left and right of the umbilical incision and an speech pathology assistant port along the R anterior axillary line. I then docked the robot in the usual fashion. Using laparoscopic graspers I managed to elevate the gallbladder above the liver. Of note, to do so I had to decompress the gallbladder. All white/clear fluid was drained from the gallbladder At the Console I grasp the edge of the gallbladder to retract laterally. Using the Maryland instrument as well as the hook-electrocautery, I dissected out the cystic duct and the cystic artery. I excised the posterior tissue to visualize the liver. I was able to clearly visualize the critical view of safety. Critical view of Safety to Excison of the gallbladder I then clipped both structures using plastic clips, two on the stay side, one on the specimen side. Using robotic scissors, I cut between the clip on the specimen side and the first clip on the stay side. Then using tension and counter-tension, I used the electrocautery to excise the gallbladder off of the liver bed. Before complete excision, I evaluated the liver bed to ensure there 1.) there was no bleeding, 2. No excessive bile leakage, and 3.) to evaluate my clips. There was no bleeding, bile leakage, and the clips were all the way across both duct and artery. Removal of gallbladder to Closure After undocking the robot, I inserted the endocatch bag into the umbilical port. I placed the specimen into the bag and retrieved it through the umbilical port. i then irrgiated the liver bed and above the liver before suctioning both irrigation fluid and air. I removed the 5mm ports, turned off the insufllation, then removed the 12mm umbilical port. I then close the umbilical fascia a vicryl suture in a figure of 8 fashion. All incisions were closed with interrupted 4-0 monocryl and sealed with dermabond. The patient tolerated the procedure well and went back to PACU in stable condition.
[2017-08-28] MEDS ORDERED: D5% in 0.45% NACL w KCl 20 MEQ/1,000 ML MLS IVC SCH (23:23)
[2017-08-28] MEDS: Ringers Solution, Lactated 1,000 ML IVC SCH (23:41)
[2017-08-28] MEDS ORDERED: D5% in 0.45% NACL 1,000 ML IVC SCH (23:45)
[2017-08-29] MEDS: *HR* OxyCODONE/APAP 5/325 TABLET PO PRN ×2 (01:19→09:07)
[2017-08-29] MEDS: Ringers Solution, Lactated 1,000 ML IVC SCH (01:22)
[2017-08-29] MEDS ORDERED: Piperacillin/Tazobactam 3.375 GM in Water for inj. (sterile) 20 ML 20 ML IVP ONE (06:00)
[2017-08-29] MEDS ORDERED: Piperacillin/Tazobactam 3.375 GM in 0.9 % Sodium Chloride Mini Bag 100 ML IVP ONE (06:00)
[2017-08-29 09:45] LABS: Basophils % 0.1 %; Hematocrit 38.5 % (35.3-44.9); Hemoglobin 11.9 g/dL (11.5-15.4); Immature Granulocytes % 0.3 % (0-4); Lymphocytes # 0.8 K/mcL (0.6-4.6); Lymphocytes % 7.2 %; Mean Corpuscular HGB Conc 30.9 g/dL (31.6-35.5); Mean Corpuscular Hemoglobin 27.8 pg (28.0-33.3); Mean Platelet Volume 11.1 fL (9.4-12.4); Monocytes # 0.4 K/mcL (0.0-1.3); Monocytes % 4.1 %; Neutrophils # 9.3 K/mcL (1.6-8.9); Platelet Count 244 K/mcL (140-400); Red Blood Count 4.28 M/mcL (3.82-4.97); Red Cell Distribution Width 14.3 % (11.5-14.5); Segmented Neutrophils % 88.3 %
[2017-08-29 09:58] LABS: BUN/Creatinine Ratio 12 (6-26); Blood Urea Nitrogen 10 mg/dL (6-20); Calcium 8.9 mg/dL (8.6-10.3); Carbon Dioxide 21 mEq/L (23-29); Chloride 110 mEq/L (98-107); Glucose 111 mg/dL (70-105); Osmolality,Calculated 288 (280-300); Potassium 4.4 mEq/L (3.5-5.1); Sodium 139 mEq/L (136-145); eGFR For African Americans > 60 (> 60); eGFR For Non-African Americans > 60 (> 60)
[2017-08-29 11:37] VITALS: BP 128/77
--- NOTE | 2017-08-29 12:40 | Discharge Summary ---
<Ce Newell H - Last Filed: 08/29/17 12:38> Orders not resulted at time of discharge: Pending orders 08/28/17 22:04 Surgical Pathology [PTH] Routine Date of Encounter: 08/29/17 Time of Encounter: 09:00 - Discharge Diagnosis (1) Acute cholecystitis Priority: Primary Status: Acute General Surgery Exam Initial Vital Signs Temp Pulse Resp BP Pulse Ox 97.8 F 81 18 150/96 98 08/28/17 14:42 08/28/17 14:42 08/28/17 14:42 08/28/17 14:42 08/28/17 14:42 - General physical appearance well developed, well nourished, no distress - Eyes normal ocular movement - Respiratory normal expansion, normal respiratory effort crackles: right (mild) - Cardiovascular Cardiovascular exam: Present: RRR, no murmurs/rubs/gallops - Abdomen Abdomen general surgery: Present: bowel sounds present. Absent: guarding, rebound, rigid Abdominal Tenderness: Present: diffusely (mild) - Incision Incision: Present: clean and dry, intact - Integumentary Integumentary general surgery: Present: warm and dry - Neurologic Present: CN 2-12 grossly intact, normal coordination - Musculoskeletal Present: normal gait, normal posture - Psychiatric Psychiatric general surgery: Present: A&Ox3, speech is normal, memory intact - Hospital Course Hospital course: Ms. Caballero is a 27 year old female with past medical history of obesity who presented to [facility] on 08/28/2017 with 4 day history of right upper quadrant pain associated with nausea, vomiting, and poor oral intake. Right upper quadrant ultrasound indicated cholelithiasis with a gallstone at the gallbladder neck, trace amount of pericholecystic fluid common positive sonographic Brasher sign. Patient was taken to the OR for robotic laparoscopic cholecystectomy. This morning, patient is resting comfortably. She states her pain is well controlled, she denies nausea or vomiting, and she is ambulating appropriately. She denies any fevers or chills. Patient is comfortable with the plan for discharge. All questions and concerns were answered and addressed. Follow-up with Dr. Benites needs to be scheduled in 2 weeks. - Time Spent with Patient Total time spent providing and/or coordinating discharge services: - Discharge Medications Prescriptions: OxyCODONE/APAP 5/325 [Percocet 5/325 MG] 1 each PO Q6HR PRN 7 Days #28 tablet PRN Reason: Pain Docusate [Colace] 100 mg PO BID #30 capsule Ibuprofen 800 mg PO TID PRN #30 tablet PRN Reason: Pain Home Medications: Docusate [Colace] 100 mg PO BID #30 capsule 08/29/17 [Rx] Ibuprofen 800 mg PO TID PRN #30 tablet 08/29/17 [Rx] OxyCODONE/APAP 5/325 [Percocet 5/325 MG] 1 each PO Q6HR PRN 7 Days #28 tablet [Rx] Allergies/Adverse Reactions: 3 Allergy/AdvReac Type Severity Reaction Status Date / Time Bleach (Sodium Hypochlorite) Allergy Hives Verified 03/27/17 13:24 coconut Allergy Swelling Verified 03/27/17 13:24 of Lip/Tongue/Throat strawberries Allergy Hives Uncoded 03/27/17 13:24 Date of admission: 08/28/17 20:05 Primary care physician: PCP NONE Discharging clinician: Benjamin Benites Anticipated date of discharge: 08/29/17 Labs on day of discharge: Labs from last 24 hours 08/29/17 08/29/17 08:34 08:34 WBC 10.5 RBC 4.28 Hgb 11.9 D Hct 38.5 MCV 90.0 MCH 27.8 L MCHC 30.9 L RDW 14.3 Plt Count 244 MPV 11.1 Immature Gran % 0.3 Seg Neutrophils % 88.3 Lymphocytes % 7.2 Monocytes % 4.1 Eosinophils % 0.0 Basophils % 0.1 Neutrophils # 9.3 H Lymphocytes # 0.8 Monocytes # 0.4 Eosinophils # 0.0 Basophils # 0.0 Sodium 139 Potassium 4.4 Chloride 110 H Carbon Dioxide 21 L BUN 10 Creatinine 0.82 Est GFR ( Amer) > 60 Est GFR (Non-Af Amer) > 60 BUN/Creatinine Ratio 12 Glucose 111 H Calculated Osmolality 288 Calcium 8.9 - Patient Status Disposition: Home, Self-Care Condition: Good Functional capacity at discharge: independent ambulation Overall status at discharge: patient is progressing back to baseline - Discharge Instructions Instructions: Laparoscopic Cholecystectomy (DC) Follow Up With: NONE,PCP [Primary Care Provider] - Benjamin Benites MD [Non-Partnered Physician] - Additional Instructions: General Surgical Discharge Instructions 1. No pushing, pulling, or lifting greater than 15 lbs for 2 weeks (depending on your surgery). 2. You may shower beginning today, but no tub baths, soaking, or swimming for 2 weeks. 3. You may resume driving when you are off narcotics and are safe to react in a car. 4. Take ibuprofen every 8 hours if needed for discomfort. If this does not relieve discomfort, you may take the as needed Percocet. Take narcotics only as directed. Do not take more narcotics then directed and do not share your narcotics with any other person. Do not drink alcohol while on narcotics. 5. Take stool softeners (Colace) or a water based laxative (Miralax) while taking narcotics. You may hold for loose stools. 6. Report any fevers greater than 100.5F, increase abdominal discomfort, drainage that looks like pus, increased redness or pain at the surgical site, or any vomiting. 7. Report any pain in the calves, shortness of breath, or rapid heartbeat. 8. Follow-up in the office as directed. 9. If you were prescribed antibiotics, do not stop them without talking to your provider. - Diet and Activity Activity: increase activity as tolerated Diet: advance to your usual diet <Benjamin Benites - Last Filed: 08/29/17 13:46> Orders not resulted at time of discharge: Pending orders 08/28/17 22:04 Surgical Pathology [PTH] Routine Date of Encounter: 08/29/17 - Discharge Diagnosis (1) Acute cholecystitis Status: Acute General Surgery Exam Initial Vital Signs Temp Pulse Resp BP Pulse Ox 97.8 F 81 18 150/96 98 08/28/17 14:42 08/28/17 14:42 08/28/17 14:42 08/28/17 14:42 08/28/17 14:42 - Hospital Course Hospital course: Ms. Caballero is a 27 year old female - Time Spent with Patient Total time spent providing and/or coordinating discharge services: Date of admission: 08/28/17 20:05 Primary care physician: PCP NONE Labs on day of discharge: Labs from last 24 hours 08/29/17 08/29/17 08:34 08:34 WBC 10.5 RBC 4.28 Hgb 11.9 D Hct 38.5 MCV 90.0 MCH 27.8 L MCHC 30.9 L RDW 14.3 Plt Count 244 MPV 11.1 Immature Gran % 0.3 Seg Neutrophils % 88.3 Lymphocytes % 7.2 Monocytes % 4.1 Eosinophils % 0.0 Basophils % 0.1 Neutrophils # 9.3 H Lymphocytes # 0.8 Monocytes # 0.4 Eosinophils # 0.0 Basophils # 0.0 Sodium 139 Potassium 4.4 Chloride 110 H Carbon Dioxide 21 L BUN 10 Creatinine 0.82 Est GFR ( Amer) > 60 Est GFR (Non-Af Amer) > 60 BUN/Creatinine Ratio 12 Glucose 111 H Calculated Osmolality 288 Calcium 8.9 - Attending Attestation I have personally seen and examined the patient. I have reviewed pertinent labs , imaging, progress notes, including this one. I agree with the above assessment and plan and wish to include the following... 27F pOD#1 s/p robotic cholecystectomy; pain controlled, tolerating diet; inc: clean, dry, intact; okay for discharge with follow up in 2 weeks
== END 2017-08-29 13:16 | disposition home or self-care (01) ==
LOC: EMEROO 14:41 → 3ANU 14:41
PROVIDERS: ADMIT Surgery; ATTEND Surgery

== ENCOUNTER 2020-01-24 17:55 | Observation (INO) ==
[2020-01-24 18:49] LABS: Bacteria,Urine Few per hpf (None-Few); Bilirubin,Urine Negative (Negative); Blood,Urine Negative (Negative); Clarity,Urine Turbid (Clear); Color,Urine Yellow (Yellow); Glucose,Urine (UA) Normal (Normal); Ketones,Urine Negative (Negative); Leukocyte Esterase,Urine Moderate (Negative); Nitrite,Urine Negative (Negative); PH,Urine 6.5 pH Units (5.0-8.0); Protein,Urine Negative (Neg-Trace); Squamous Epithelial Cell,Urine Moderate per hpf (None-Few); Urobilinogen,Urine Normal (Normal); WBC,Urine 15-30 per hpf (0-3)
[2020-01-24] MEDS ORDERED: Metoclopramide 10 MG/2 ML VIAL IVP PRN (22:08)
[2020-01-24] MEDS ORDERED: Famotidine 20 MG/2 ML VIAL IVP PRN (22:08)
[2020-01-24] MEDS ORDERED: Ondansetron 4 MG/2 ML VIAL IVP PRN (22:08)
[2020-01-24] MEDS ORDERED: Terbutaline 1 MG/ML VIAL SQ ONE (22:08)
[2020-01-24] MEDS ORDERED: Ringers Solution, Lactated 1,000 ML IVC ONE (22:11)
[2020-01-24] MEDS ORDERED: Betamethasone Acet/SodPhos 30 MG/5 ML VIAL IM SCH (22:15)
[2020-01-24] MEDS ORDERED: Ringers Solution, Lactated 1,000 ML IVC SCH (22:15)
[2020-01-24 23:54] LABS: Amphetamine Screen,Urine Negative ng/mL (Cutoff=1000); Barbiturate Screen,Urine Negative ng/mL (Cutoff=200); Benzodiazepines Screen,Urine Negative ng/mL (Cutoff=200); Cannabinoid Screen,Urine Negative ng/mL (Cutoff = 50); Cocaine Screen,Urine Negative ng/mL (Cutoff= 300); Opiate Screen,Urine Negative ng/mL (Cutoff=300); Phencyclidine Screen,Urine Negative ng/mL (Cutoff=25)
== END 2020-01-25 01:51 | disposition left against medical advice (07) ==
LOC: 1NENULAB
PROVIDERS: ADMIT Registered Nurse; ATTEND Registered Nurse

== ENCOUNTER 2020-01-25 15:04 | Observation (INO) ==
[2020-01-25] MEDS ORDERED: Ringers Solution, Lactated 1,000 ML IVC ONE (18:08)
[2020-01-25] MEDS ORDERED: NIFEdipine 10 MG CAPSULE PO ONE (19:25)
[2020-01-25] MEDS ORDERED: Betamethasone Acet/SodPhos 30 MG/5 ML VIAL IM SCH (22:50)
== END 2020-01-25 22:34 | disposition home or self-care (01) ==
LOC: 1NENULAB
PROVIDERS: ADMIT Student in an Organized Health Care Education/Training Program; ATTEND Student in an Organized Health Care Education/Training Program

== ENCOUNTER 2020-01-26 16:57 | Observation (INO) | END 2020-01-26 19:34 | disposition home or self-care (01) | LOC: 1NENULAB | PROVIDERS: ADMIT Obstetrics & Gynecology; ATTEND Obstetrics & Gynecology ==

== ENCOUNTER → 2020-02-03 21:23 | Observation (INO) ==
[2020-02-03 20:41] LABS: Bacteria,Urine Few per hpf (None-Few); Bilirubin,Urine Negative (Negative); Blood,Urine Negative (Negative); Clarity,Urine Turbid (Clear); Color,Urine Yellow (Yellow); Glucose,Urine (UA) Normal (Normal); Ketones,Urine Negative (Negative); Leukocyte Esterase,Urine Large (Negative); Mucus,Urine Few per lpf (None-Few); Nitrite,Urine Negative (Negative); PH,Urine 6.5 pH Units (5.0-8.0); Protein,Urine 30 mg/dL (Neg-Trace); Specific Gravity,Urine 1.019 (1.010-1.025); Squamous Epithelial Cell,Urine Moderate per hpf (None-Few); Urobilinogen,Urine Normal (Normal); WBC,Urine 50-100 per hpf (0-3)
[2020-02-03 20:46] LABS: Candida DNA Not Detected (Not Detect); Gardnerella DNA DETECTED (Not Detect); Trichomonas DNA Not Detected (Not Detect)
== END | disposition home or self-care (01) ==
LOC: 1NENULAB
PROVIDERS: ADMIT Obstetrics & Gynecology; ATTEND Obstetrics & Gynecology

== ENCOUNTER → 2020-02-09 20:42 | Observation (INO) ==
[2020-02-09 19:51] LABS: Bacteria,Urine Few per hpf (None-Few); Bilirubin,Urine Negative (Negative); Blood,Urine Negative (Negative); Clarity,Urine Turbid (Clear); Color,Urine Yellow (Yellow); Glucose,Urine (UA) Normal (Normal); Ketones,Urine Negative (Negative); Leukocyte Esterase,Urine Large (Negative); Mucus,Urine Few per lpf (None-Few); Nitrite,Urine Negative (Negative); PH,Urine 6.5 pH Units (5.0-8.0); Protein,Urine Trace mg/dL (Neg-Trace); Specific Gravity,Urine 1.015 (1.010-1.025); Squamous Epithelial Cell,Urine Many per hpf (None-Few); Urobilinogen,Urine Normal (Normal); WBC,Urine TNTC per hpf (0-3)
== END | disposition home or self-care (01) ==
LOC: 1NENULAB
PROVIDERS: ADMIT Student in an Organized Health Care Education/Training Program; ATTEND Student in an Organized Health Care Education/Training Program

== ENCOUNTER 2020-02-10 01:55 | Inpatient (IN) ==
[~2020-02-10 01:55] MED LIST: CeFAZolin Syr 3,000MG/30 ML 3,000 MG/30 ML SYRINGE IVPB ONE; Famotidine 20 MG/2 ML VIAL IVP ONE; Metoclopramide 10 MG/2 ML VIAL IVP ONE; Oxytocin 20 units/ LR 1000 mL 20 UNIT/1,000 ML BAG IVC ONE; Ringers Solution, Lactated 1,000 ML IVC ONE
[2020-02-10] MEDS ORDERED: Oxytocin 20 units/ LR 1000 mL 20 UNIT/1,000 ML BAG IVC SCH (02:00)
[2020-02-10] MEDS ORDERED: Ringers Solution, Lactated 1,000 ML IVC SCH ×2 (02:00→07:52)
[2020-02-10] MEDS ORDERED: *HR* Morphine Sulfate/PF 10 MG/10 ML AMPUL ONE (02:34)
[2020-02-10] MEDS ORDERED: *HR* FentaNYL (PF) 100 MCG/2 ML VIAL ONE (02:34)
[2020-02-10] MEDS ORDERED: *HR* Oxytocin 10 UNIT/ML VIAL IM ONE (02:35)
[2020-02-10] MEDS ORDERED: Ringers Solution, Lactated 1,000 ML ONE (02:36)
[2020-02-10 03:00] LABS: Basophils # 0.1 K/mcL (0.0-0.2); Basophils % 0.3 %; Eosinophils # 0.4 K/mcL (0.0-0.6); Hematocrit 38.6 % (35.3-44.9); Hemoglobin 12.3 g/dL (11.5-15.4); Immature Granulocytes % 0.9 % (0-4); Lymphocytes # 2.9 K/mcL (0.6-4.6); Lymphocytes % 16.7 %; Mean Corpuscular HGB Conc 31.9 g/dL (31.6-35.5); Mean Corpuscular Hemoglobin 30.4 pg (28.0-33.3); Mean Corpuscular Volume 95.5 fL (83.0-100.0); Mean Platelet Volume 10.6 fL (9.4-12.4); Monocytes # 1.5 K/mcL (0.0-1.3); Monocytes % 8.7 %; Neutrophils # 12.2 K/mcL (1.6-8.9); Platelet Count 351 K/mcL (140-400); Red Blood Count 4.04 M/mcL (3.82-4.97); Red Cell Distribution Width 14.6 % (11.5-14.5); Segmented Neutrophils % 71.4 %; White Blood Count 17.1 K/mcL (4.3-11.1)
[2020-02-10] MEDS ORDERED: *HR* Meperidine 25 MG/ML SYRINGE IVP PRN (03:55)
[2020-02-10] MEDS ORDERED: Naloxone 0.4 MG/ML INJ IVP PRN (03:55)
[2020-02-10] MEDS ORDERED: *HR* Promethazine 25 MG/ML VIAL IVP PRN (03:55)
[2020-02-10] MEDS ORDERED: Ondansetron 4 MG/2 ML VIAL IVP PRN ×2 (03:55→07:52)
[2020-02-10] MEDS ORDERED: *HR* HYDROmorphone PF 0.5 MG/0.5 ML SYRINGE IVP PRN (03:55)
[2020-02-10] MEDS ORDERED: Acetaminophen IV 1,000 MG/100 ML INFUS..BTL ONE (04:06)
[2020-02-10] MEDS ORDERED: Rho Immune Globulin 1,500 UNIT SYRINGE IM ONE (07:52)
[2020-02-10] MEDS ORDERED: Metoclopramide 10 MG/2 ML VIAL IVP PRN (07:52)
[2020-02-10] MEDS ORDERED: Ibuprofen 600 MG TABLET PO PRN (07:52)
[2020-02-10] MEDS ORDERED: Sennosides 8.6 MG TABLET PO PRN (07:52)
[2020-02-10] MEDS ORDERED: Simethicone 80 MG TAB.CHEW PO PRN (07:52)
[2020-02-10] MEDS: Oxytocin 20 units/ LR 1000 mL 20 UNIT/1,000 ML BAG IVC SCH ×2 (08:03→16:21)
[2020-02-10] MEDS ORDERED: cephALEXin 500 MG CAPSULE PO SCH (09:00)
[2020-02-10] MEDS: cephALEXin 250 MG/5 ML UDC PO SCH ×3 (10:12→20:43)
[2020-02-10] MEDS: Docusate Oral Soln 100 MG/10 ML UDC PO SCH ×2 (10:13→20:04)
[2020-02-10] MEDS: Prenatal Vit/FA 1 EACH TABLET PO SCH ×2 (10:13→10:48)
[2020-02-10] MEDS: Ferrous Sulfate Oral Soln 300 MG/5 ML UDC PO SCH ×2 (10:14→10:49)
[2020-02-10] MEDS: metroNIDAZOLE 500 MG TABLET PO SCH ×3 (10:14→20:04)
[2020-02-10] MEDS: *HR* OxyCODONE/APAP 5/325 TABLET PO PRN ×2 (16:21→21:02)
[2020-02-11] MEDS: *HR* OxyCODONE/APAP 5/325 TABLET PO PRN ×6 (01:02→23:01)
[2020-02-11] MEDS: cephALEXin 250 MG/5 ML UDC PO SCH ×3 (08:20→21:10)
[2020-02-11] MEDS: metroNIDAZOLE 500 MG TABLET PO SCH ×3 (08:20→21:12)
[2020-02-11] MEDS: Ferrous Sulfate Oral Soln 300 MG/5 ML UDC PO SCH (08:21)
[2020-02-11] MEDS: Prenatal Vit/FA 1 EACH TABLET PO SCH (08:21)
[2020-02-11 08:57] LABS: Basophils # 0.1 K/mcL (0.0-0.2); Basophils % 0.3 %; Eosinophils # 0.3 K/mcL (0.0-0.6); Eosinophils % 1.7 %; Immature Granulocytes % 0.8 % (0-4); Lymphocytes # 1.8 K/mcL (0.6-4.6); Lymphocytes % 9.7 %; Mean Corpuscular HGB Conc 31.4 g/dL (31.6-35.5); Mean Corpuscular Hemoglobin 30.6 pg (28.0-33.3); Mean Corpuscular Volume 97.5 fL (83.0-100.0); Mean Platelet Volume 10.6 fL (9.4-12.4); Monocytes # 1.3 K/mcL (0.0-1.3); Monocytes % 6.9 %; Neutrophils # 14.6 K/mcL (1.6-8.9); Platelet Count 285 K/mcL (140-400); Red Blood Count 3.59 M/mcL (3.82-4.97); Red Cell Distribution Width 14.6 % (11.5-14.5); Segmented Neutrophils % 80.6 %; White Blood Count 18.1 K/mcL (4.3-11.1)
[2020-02-11] MEDS: Docusate Oral Soln 100 MG/10 ML UDC PO SCH ×2 (14:01→21:10)
[2020-02-12] MEDS: *HR* OxyCODONE/APAP 5/325 TABLET PO PRN (03:53)
[2020-02-12 08:00] VITALS: BP 126/78
[2020-02-12] MEDS: Docusate Oral Soln 100 MG/10 ML UDC PO SCH (09:02)
[2020-02-12] MEDS: Prenatal Vit/FA 1 EACH TABLET PO SCH (09:02)
[2020-02-12] MEDS: Ferrous Sulfate Oral Soln 300 MG/5 ML UDC PO SCH (09:04)
== END 2020-02-12 12:24 | disposition home or self-care (01) | DRG 539 ==
LOC: 1NENULAB → 1NENUOBS 07:44
PROVIDERS: ADMIT Student in an Organized Health Care Education/Training Program; ATTEND Student in an Organized Health Care Education/Training Program